=== PATIENT | female | born 1970 | race Caucasian/White ===

== ENCOUNTER 2016-05-21 14:43 | Emergency (ER) | payer OTHER ==
--- NOTE | ~2016-05-21 | CR90 ---
[facility] A Service of [facility] RADIOLOGY TEXT RESULTS PATIENT: AMADEO MAGDALENO LOCATION: SED : 68 UNIT #: [id number] AGE: [address]: ALEJO KLEIN SEX: F ORDER DR: [id number] [place] [id number] E MR#: [id number] Acc #: [id number] NAME: AMADEO MAGDALENO. : 1970 SEX: F STUDY DATE/TIME: 05/21/2016 14:16 UNIT: SED ROOM: STUDY DESCRIPTION: CR Elbow 2 View Lt Attending Physician: Alejo Klein Referring Physician: Alejo Klein Ordering Physician: Aris Sosa M.D. Primary Care Physician: Anthony Siegel M.D. MEDICAL IMAGING REPORT This report is preliminary unless electronic signature is present. EXAM Left elbow series 05/21/2016 HISTORY Trauma. Happened A couple hours ago. Hit elbow on ground. Fell at work. FINDINGS AP lateral and oblique radiographs of the left elbow are presented. Normal bony mineralization. No traumatic fracture or malalignment. No soft tissue defect, subcutaneous air or radiodense foreign body. Dictated by... Car Fritz M.D. THIS IS AN ELECTRONICALLY VERIFIED REPORT Car Frtiz M.D. at 05/22/2016 4:50 PM OMAR/nathan TD: 05/21/2016 18:14 JOB #: [id number] MEDICAL IMAGING REPORT Page 1 of 1
[~2016-05-21 14:43] MED LIST: AMBIEN PO; CELEXA PO; CORRECTOL5 MG PO; GAS-X166 MG PO; MIRALAX255 GM PO; NO MEDICATIONS; ORUDIS75 M1 DOB; PHENERGAN25 MG PO; PHYSICIAN; SUBUTEX PO; TUMS PO; VITAMIN B-12 INJ
== END 2016-05-21 16:13 | disposition home or self-care (01) ==
LOC: SED 14:43
DX: S50.02XA Contusion of left elbow, initial encounter (principal); K21.9 Gastro-esophageal reflux disease without esophagitis; Z95.1 Presence of aortocoronary bypass graft; F17.210 Nicotine dependence, cigarettes, uncomplicated; W01.0XXA Fall on same level from slipping, tripping and stumbling without subsequent striking against object, initial encounter; Y92.89 Other specified places as the place of occurrence of the external cause
CPT/HCPCS: 73070; 99283